=== PATIENT | female | born 1950 | race Caucasian/White ===

== ENCOUNTER 2018-05-15 16:10 | Outpatient (REF) | payer OTHER, MEDICARE, SELFPAY ==
--- NOTE | 2018-05-15 15:30 | PAPFT_PTH ---
PATIENT: Kala Sherman LOC: [facility] U#:[id number] AGE/SX: 68/F ROOM: RE05/15/[address]: RENATA Hinds : 1950 BED: DIS: 05/15/2018 SPEC #: [id number] RECD: 05/15/18 17:57 STATUS: ADDI REQ #: [id number] SKIP: 05/15/18 15:[address]: Miranda Castro DEPT: [facility] Cytology RECD BY: Ava Stewart ENTERED: 05/15/18 17:58 SP TYPE: PAPFT M[place]OR[place] DR: Melchor Ordonez Tissues: 1 - CX/ENDOCX FOR PAP SMEARS Procedures: PAP THIN PREP/[facility] Screening Comments: [id number]
== END 2018-05-15 16:30 ==
LOC: LBN 16:10
PROVIDERS: PCP Family Medicine; Visit Provider Nurse Practitioner Family
DX: Z12.4 Encounter for screening for malignant neoplasm of cervix (principal)
CPT/HCPCS: 88142

== ENCOUNTER 2018-07-02 01:33 | Outpatient (CLI) | payer OTHER, MEDICARE, SELFPAY ==
--- NOTE | 2018-07-02 15:30 | DI.MAMMO_ITS ---
SYMPTOM/DIAGNOSIS: SCREENING, Z12.31 MAMMOGRAMS: Mammograms were interpreted according to the usual protocol including computer analysis with CAD system, tomosynthesis and C view imaging. Comparison is made with exams from 7924-8511. The breasts are composed of scattered fibroglandular densities, breast density, Category B. No suspicious masses or suspicious microcalcifications are seen. There has been no significant change. IMPRESSION: Category 1B, negative mammogram. Yearly screening mammography is recommended. [facility] ASSESSMENT OF FINDINGS: Negative. Category 1. Patient will receive a letter notifying them of these results. BI-RADS category B. There are scattered areas of fibroglandular density.
== END 2018-07-02 01:53 ==
PROVIDERS: PCP Family Medicine; Visit Provider Nurse Practitioner Family
DX: Z12.31 Encounter for screening mammogram for malignant neoplasm of breast (principal)
CPT/HCPCS: 77063; 77067

== ENCOUNTER 2018-07-24 12:12 | Outpatient (CLI) | payer OTHER, MEDICARE, SELFPAY ==
[2018-07-24 12:47] LABS: Bilirubin Negative (Negative); Blood Negative (Negative); Clarity Clear; Glucose Negative (Negative); Ketones Negative (Negative); Leukocyte Esterase Moderate (Negative); Nitrite Negative (Negative); Urobilinogen 0.2 EU/dL (Up TO 0.2)
[2018-07-24 13:00] LABS: WBC 20-50 HPF (0-5)
[2018-07-24 13:01] LABS: Bacteria Moderate HPF (Negative); C & S Indicated? C&S Done As Ordered; Casts Negative LPF (Negative); Crystals Negative HPF (Negative); Epithelial Cells Rare HPF (Negative); Mucus Negative (Negative)
== END 2018-07-24 12:32 ==
PROVIDERS: PCP Family Medicine; Visit Provider Family Medicine
DX: R30.0 Dysuria (principal); R31.9 Hematuria, unspecified
CPT/HCPCS: 87077; 81003; 81015; 87086; 87186

== ENCOUNTER 2018-12-06 14:25 | Outpatient (REF) | payer OTHER, SELFPAY | END 2018-12-06 14:45 | LOC: LBN 14:25 | PROVIDERS: PCP Family Medicine; Visit Provider Nurse Practitioner Family | DX: R30.0 Dysuria (principal) | CPT/HCPCS: 87086 ==

== ENCOUNTER 2019-08-06 16:28 | Outpatient (REF) | payer MEDICARE, SELFPAY ==
--- NOTE | 2019-08-06 15:30 | PAPFT_PTH ---
PATIENT: Kala Sherman LOC: N U#:[id number] AGE/SX: 69/F ROOM: RE08/06/[address]: Mita Valderrama : 1950 BED: DIS: 08/06/2019 SPEC #: [id number] RECD: 08/06/19 18:21 STATUS: ADDI REQ #: [id number] SKIP: 08/06/19 15:[address]: Mita Valderrama DEPT: [facility] Cytology RECD BY: Ava Stewart ENTERED: 08/06/19 18:22 SP TYPE: PAPFT OTHR DR: Melchor Ordonez Tissues: 1 - CX/ENDOCX FOR PAP SMEARS Procedures: PAP THIN PREP/[facility] Screening Comments: [id number]
== END 2019-08-06 16:48 ==
LOC: LBN 16:28
PROVIDERS: PCP Family Medicine; Visit Provider Obstetrics & Gynecology Gynecology
DX: Z12.4 Encounter for screening for malignant neoplasm of cervix (principal)
CPT/HCPCS: 88142

== ENCOUNTER 2019-09-05 00:33 | Outpatient (CLI) | payer MEDICARE, SELFPAY ==
--- NOTE | 2019-09-05 15:00 | DI.MAMMO_ITS ---
EXAM: MG MAMMO SCREENING CLINICAL HISTORY: SCREENING, Z12.39 TECHNIQUE: Mammograms were interpreted according to the usual protocol including computer analysis w [email or web address] CAD system, tomosynthesis and C-view imaging. COMPARISON: Current examination is compared with previous examinations including June 2018 FINDINGS: The breasts are of moderate density with fairly symmetrical distribution of fibroglandular tissue. N o dominant mass or clumped microcalcification is identified in either breast. Current examination is compared with previous examinations including June 2018 and there has been no gross interval galeana ge in appearance in comparison with the previous studies. IMPRESSION: No specific evidence of malignancy at this time. Routine screening examinations are suggested at yea rly intervals due to the family history of breast carcinoma. Category 1, breast density category B. BI-RADS Cat 1 - Negative Breast Density - Category B - Scattered areas of fibroglandular density
== END 2019-09-05 00:53 ==
PROVIDERS: PCP Family Medicine; Visit Provider Obstetrics & Gynecology Gynecology
DX: Z12.31 Encounter for screening mammogram for malignant neoplasm of breast (principal)
CPT/HCPCS: 77063; 77067

== ENCOUNTER 2020-01-27 07:36 | Outpatient (CLI) | payer MEDICARE, SELFPAY ==
[2020-01-28 15:00] LABS: COVID-19 RT-PCR Result NEGATIVE (Negative)
== END 2020-01-27 07:56 ==
PROVIDERS: PCP Family Medicine; Visit Provider Nurse Practitioner Family
DX: Z11.59 Encounter for screening for other viral diseases (principal)
CPT/HCPCS: U0003

== ENCOUNTER 2021-08-09 01:21 | Outpatient (CLI) | payer MEDICARE, SELFPAY ==
--- NOTE | 2021-08-09 | DI.MAMMO_ITS ---
Exam(s) MAMMO SCREENING EXAM: MAMMO SCREENING CLINICAL HISTORY: SCREENING, Z12.31. TECHNIQUE: Bilateral full field digital CC and MLO mammographic images were obtained with 3D tomosyn thesis and utilizing computer aided detection (CAD). COMPARISON: Prior mammograms were reviewed, the most recent being August 2019. FINDINGS: There are no new spiculated masses nor malignant appearing microcalcification groups. Small benign-appearing nodular densities in the right breast are unchanged. There is no significant architectural distortion nor skin thickening-retraction. IMPRESSION: No radiographic evidence of malignancy. Stable benign findings. BI-RADS Category 2 - Benign Findings Breast Density - Category B - Scattered areas of fibroglandular density Breast density Category C or D implies that the patient has dense breast tissue. Dense breast tissue can make it harder to find cancer on a mammogram. Dense breast tissue is also associated with an incr eased risk of breast cancer. This information about the result of the mammogram report was provided to the patient to raise their awareness. Use this report when you speak with the patient about their risks for breast cancer, which includes their family history. At that time, you may recommend additional screening tests (Ultrasoun d or MRI) as these tests may add significant information. A negative radiographic report should not delay biopsy if a dominant or clinically suspicious mass is present. Up to ten percent of cancers are not identified on mammography. A negative report may reinforce clinical impression. Adenosis and dense breasts may obscure an underlying neoplasm. False positive reports average 6 to 10%. Patient will receive a letter notifying them of these results.
== END 2021-08-09 01:41 ==
PROVIDERS: PCP Family Medicine; Visit Provider Family Medicine
DX: Z12.31 Encounter for screening mammogram for malignant neoplasm of breast (principal)
CPT/HCPCS: 77063; 77067

== ENCOUNTER 2021-08-17 00:13 | Outpatient (CLI) | payer MEDICARE, SELFPAY ==
--- NOTE | 2021-08-17 15:00 | ETT_ITS ---
APPROVED REPORT Exam: Exercise Treadmill Patient Location: Out-Patient Room/Bed: Stress Nurse: Karen Wright RN Ordering Provider:HUNG MORALES, Contact Number: [phone] BMI: 34.56 Baseline Rhythm: Sinus Rhythm Comment: inverted T wave in lead V2 Indications: EXERTIONAL CHEST PAIN Medical History Medical History: No significant past medical history Cardiac Medications: None Allergies: No known drug allergies Cardiac Risk Factors: FHX of CAD, Obesity Previous Cardiac Procedures: None Pretest Chest Pain Characteristics: No chest pain Exercise History: Sedentary Physical Disabilities: None Lung Sounds: Clear to auscultation Heart Sounds: Regular Stress Test Details Test: Exercise stress testing was performed using a Bert protocol. Rest Stress HR Resting HR Supine: 83 bpm Max Heart Rate (APMHR): 149 bpm Resting HR Standin bpm Target HR (85% APMHR): 126 bpm Max HR Achieved: 140 bpm % of APMHR: 93 Recovery HR: 98 bpm HR response to stress: Normal HR response to stress BP Resting BP Supine: 144/70 mmHg Resting BP Standin/80 mmHg Max BP: 188/64 mmHg Recovery BP: 168/82 mmHg BP response to stress: Normal blood pressure response to stress. ECG Resting ECG: Sinus Rhythm Ectopy: none Comment: inverted T wave in lead V2 Stress ECG: Sinus Tachycardia ST Change: No significant ST segment changes noted Arrhythmia: None Recovery ECG: Sinus Rhythm Recovery ST Change: No significant ST segment changes noted Recovery Arrhythmia: None Clinical Reason for Termination: Fatigue Stress Symptoms: General Fatigue, Dyspnea, Chest tighness Exercise duration: 6 min06 sec Highest Stage Reached: Stage 3: 3.4 mph at 14% grade. Exercise capacity: 7.18 METs Manzano Treadmill Score: 2 Rate Pressure Product: [id number] Stress ECG Conclusion 1. Resting electrocardiogram showed voltage for left ventricular hypertrophy, minor ST abnormalities 2. Patient exercised on the Bert protocol and completed a workload of 7.18 METS 3. Normal heart rate and blood pressure response to exercise. Patient achieved 93% of predicted hear t rate for age 4. Electrocardiographic portion of the test was negative for myocardial ischemia 5. There were no significant dysrhythmias Manzano Treadmill Score is 2 which is Moderate risk. Stress Test Summary STAGE Time (mins) Speed (mph) Grade (%) HR BP SYMPTOMS METS Supine 83 144/70 Standing 91 158/80 1 3 1.7 10 109 180/74 4.6 2 6 2.5 12 138 184/78 7 1 min recovery 122 188/64 1/10 chest tightness, mild SOB. SpO2 97% 3 min recovery 96 184/70 6 min recovery 98 168/82 Symptoms resolved.
== END 2021-08-17 00:33 ==
PROVIDERS: PCP Family Medicine; Visit Provider Family Medicine
DX: R07.89 Other chest pain (principal); I51.7 Cardiomegaly
CPT/HCPCS: 93017

== ENCOUNTER 2024-01-29 02:05 | Outpatient (CLI) | payer MEDICARE, SELFPAY ==
--- NOTE | 2024-01-29 13:20 | DI.MAMMO_ITS ---
Exam(s) MAMMO SCREENING EXAM: MAMMO SCREENING CLINICAL HISTORY: HELENE, Z12.31 TECHNIQUE: Bilateral full field digital CC and MLO mammographic images were obtained with 3D tomosyn thesis and utilizing computer aided detection (CAD). COMPARISON: Available for comparison. FINDINGS: Masses/Architectural Distortion: Stable small nodule seen in the right breast. No new nodules. No a reas of architectural distortion. Microcalcifications: No suspicious pleomorphic-type are seen. Skin Thickening/Nipple Retraction: None. IMPRESSION: 1. No significant interval change with no specific features of malignancy noted. 2. Unless there is more urgent need, screening mammography is recommended, as per [employer] guidelines. BI-RADS Category 2 - Benign Findings Breast Density - Category B - Scattered areas of fibroglandular density Breast density category C or D implies that the patient has dense breast tissue. Dense breast tissue is very common and is not abnormal but dense breast tissue can make it harder to find cancer on a ma mmogram. Also, dense breast tissue may increase their breast cancer risk. This information about the result of the mammogram report was provided to the patient to raise their awareness. Use this report when you speak with the patient about their risks for breast cancer, which includes their family hist ory. At that time, you may recommend for more screening tests (Ultrasound or MRI) as they might be us eful based on their risk. A negative radiographic report should not delay biopsy if a dominant or clinically suspicious mass is present. Up to ten percent of cancers are not identified on mammography. A negative report may reinforce clinical impression. Adenosis and dense breasts may obscure an underlying neoplasm. False positive reports average 6 to 10%. Patient will receive a letter notifying them of these results.
== END 2024-01-29 02:25 ==
PROVIDERS: PCP Family Medicine; Visit Provider Family Medicine
DX: Z12.31 Encounter for screening mammogram for malignant neoplasm of breast (principal)
CPT/HCPCS: 77063; 77067